=== PATIENT | female | born 1985 | race Caucasian/White ===

== ENCOUNTER → 2017-10-07 | Outpatient (CLI) | payer OTHER ==
[~2017-10-07] MED LIST: BCP; CETI10CA8 PO; DIC10 PO; HYDR-4309 PO; IBU800 PO; IRON1TAB55 PO; LEVO1TAB43 PO; LOR5 PO; LOR5/325 PO; METO-566 PO; MULT-820 PO; NORG1TAB74 PO; ONDA4TAB PO; PAN40 PO; PER PO; PREN-67 PO; PROM-110 PO; RANI-324 PO; [UNRECOGNIZED DRUG - CODE] PO
--- NOTE | 2017-10-07 11:47 | RADIOLOGY IMAGING REPORT ---
FACILITY: [facility] - [place] PATIENT NAME: Nelida Nix : 1985 MR: [id number] V: [id number] EXAM DATE: ORDERING PHYSICIAN: MARILYN PÉREZ TECHNOLOGIST: Location: [facility] - [place] Patient: Nelida Nix : 1985 Visit/Account:[id number] Date of Sevice: 10/07/2017 Left lower extremity venous Doppler duplex ultrasound scan. HISTORY: Ankle surgery five weeks ago. COMPARISON: 08/28/2017. A color flow Doppler duplex ultrasound examination with spectral analysis was performed on the lower extremity. The common femoral vein, superficial femoral vein, and popliteal vein are normal. These ve ssels compress and augment normally. The upper portions of the trifurcation veins are unremarkable. P ortions of the deep veins of the calf are obscured. No intraluminal filling defects are identified to suggest acute thrombus. Note that Doppler ultrasound is somewhat insensitive below the knee. A veno us reflux study was not performed at this time. IMPRESSION: Negative for acute deep vein thrombosis. Report Dictated By: David Olmos MD at 10/07/2017 11:41 AM Report E-Signed By: David Olmos MD at 10/07/2017 11:43 AM WSN:[email or web address]
== END ==
LOC: US 10:21
PROVIDERS: ATTEND Orthopaedic Surgery
DX: Z47.89 Encounter for other orthopedic aftercare (principal); M79.662 Pain in left lower leg

== ENCOUNTER → 2018-07-08 | Outpatient (CLI) | payer OTHER ==
[~2018-07-08] MED LIST changes: -HYDR-4309 PO; +HYDR-653 PO; -RANI-324 PO; +RANI-366 PO
--- NOTE | 2018-07-08 13:33 | RADIOLOGY IMAGING REPORT ---
FACILITY: [facility] - [place] PATIENT NAME: Nelida Nix : 1985 MR: [id number] V: [id number] EXAM DATE: ORDERING PHYSICIAN: JENNIFER BELL TECHNOLOGIST: Location: [facility] Patient: Nelida Nix : 1985 Visit/Account:[id number] Date of Sevice: 07/08/2018 FINGER RIGHT THUMB Indication: Right thumb pain, volleyball injury. Comparison: None. Findings: The distal and proximal phalanx of the right thumb are intact. Alignment is maintained. S oft tissues are normal. Remaining bones of the right hand are intact. IMPRESSION: Normal right hand and right thumb radiograph. Report Dictated By: Pedro Luis Abel at 07/08/2018 1:28 PM Report E-Signed By: Pedro Luis Abel at 07/08/2018 1:29 PM WSN:[email or web address]
== END ==
LOC: RAD 11:54
PROVIDERS: ATTEND Nurse Practitioner Family
DX: M79.644 Pain in right finger(s) (principal)